=== PATIENT | female | born 1995 | race Caucasian/White ===

== ENCOUNTER 2018-01-08 17:48 | Emergency (ER) | payer MEDICAID ==
[2018-01-08 18:10] VITALS: TEMP 98.5
[2018-01-08] MEDS ORDERED: Albuterol 0.083% Inhal Sol (2.5 mg/3 mL) UD IH STA (20:08)
--- NOTE | 2018-01-08 20:19 | C.PDOC ---
History Of Present Illness 22 year old female presents to the ED complaining of cough, chest congestion and chills for the last 10 days. Cough is associated with occasionally clear or yellow phlegm. Reports she has tried OTC cough medications without relief. Denies any fever, sore throat, ear pain, shortness of breath, nausea, vomiting, or diarrhea. Denies any history of asthma, recent travels or sick contacts at home. Time Seen by Provider: 01/08/18 19:59 Chief Complaint (Nursing): Cough, Cold, Congestion History Per: Patient History/Exam Limitations: no limitations Onset/Duration Of Symptoms: Days (10) Current Symptoms Are (Timing): Still Present Associated Symptoms: Chills, Cough, Nasal Congestion. denies: Fever, Sore Throat, Nausea, Vomiting, Diarrhea Ear Symptoms: Bilateral: None Past Medical History Reviewed: Historical Data, Nursing Documentation, Vital Signs Vital Signs: Last Vital Signs Temp 98.5 F 01/08/18 18:07 Pulse 74 01/08/18 18:07 Resp 20 01/08/18 18:07 BP 128/83 01/08/18 18:07 Pulse Ox 100 01/08/18 18:07 - Medical History PMH: Gastritis, Gall Bladder Disease Denies: Chronic Kidney Disease Surgical History: Appendectomy - [facility] Procedures EXCISION OF STOMACH, ENDO, DIAGN (10/29/15) RESECTION OF LEFT FALLOPIAN TUBE, OPEN APPROACH (11/27/14) RESECTION OF LEFT OVARY, OPEN APPROACH (11/27/14) Family History: States: No Known Family Hx - Social History Hx Tobacco Use: No Hx Alcohol Use: No Hx Substance Use: No Review Of Systems Constitutional: Positive for: Chills. Negative for: Fever ENT: Negative for: Ear Pain, Throat Pain Cardiovascular: Positive for: Other (chest congestion ) Respiratory: Positive for: Cough, Sputum (clear and yellow ). Negative for: Shortness of Breath Gastrointestinal: Negative for: Nausea, Vomiting, Diarrhea Physical Exam - Physical Exam Appears: Non-toxic, No Acute Distress Skin: Warm, Dry, No Rash Head: Normacephalic Eye(s): bilateral: Normal Inspection Nose: Normal Oral Mucosa: Moist Neck: Supple Chest: Symmetrical Cardiovascular: Rhythm Regular Respiratory: No Rales, No Rhonchi, Wheezing (diffused wheezing b/l ) Gastrointestinal/Abdominal: Soft, No Tenderness, No Guarding, No Rebound Extremity: Bilateral: Atraumatic, Normal Color And Temperature, Normal ROM Neurological/Psych: Oriented x3, Normal Speech Gait: Steady ED Course And Treatment O2 Sat by Pulse Oximetry: 100 (RA) Pulse Ox Interpretation: Normal - Radiology CXR: Interpreted by Me CXR Interpretation: Yes: No Acute Disease Progress Note: Patient treated with albuterol nebulizer in ED. Reevaluation Time: 21:02 Reassessment Condition: Improved (Lungs clear. Patient states she feels much less tight.) Medical Decision Making Medical Decision Making: Plan - CXR - HCG - Albuterol treatment Disposition Counseled Patient/Family Regarding: Studies Performed, Diagnosis, Need For Followup, Rx Given - Disposition Referrals: Gucci lAex [Staff Provider] - Disposition: HOME/ ROUTINE Disposition Time: 21:07 Condition: IMPROVED Prescriptions: Albuterol Sulfate [Proair Hfa] 0.09 mg IH QID PRN #1 inh PRN Reason: Wheezing Azithromycin [Zithromax] 250 mg PO DAILY #6 tab Promethazine HCl/Codeine [Prometh-Codein 6.25-10 mg/5 ml] 5 ml PO QID PRN #120 syrup PRN Reason: Cough Instructions: Acute Bronchitis, Adult (DC) Forms: [facility] ([place]) - Clinical Impression Clinical Impression: Bronchitis - Scribe Statement The provider has reviewed the documentation as recorded by the Scribfarhana Chacko All medical record entries made by the Scribe were at my direction and perso ej dictated by me. I have reviewed the chart and agree that the record accurately reflects my personal performance of the history, physical exam, medical decision making, and the department course for this patient. I have also personally directed, reviewed, and agree with the discharge instructions and disposition.
[2018-01-08] MEDS ORDERED: Albuterol 0.083% Inhal Sol (2.5 mg/3 mL) UD ONE (20:22)
[2018-01-08 21:33] VITALS: BP 126/85; PULSE 84; RESP 16; O2SAT 98
--- NOTE | 2018-01-09 08:50 | RAD ---
Date of service: 01/08/2018 HISTORY: cough COMPARISON: No prior. TECHNIQUE: Chest PA and lateral FINDINGS: LUNGS: No active pulmonary disease. PLEURA: No significant pleural effusion identified. No pneumothorax apparent. CARDIOVASCULAR: No aortic atherosclerotic calcification present. Normal cardiac size. No pulmonary vascular congestion. OSSEOUS STRUCTURES: No significant abnormalities. VISUALIZED UPPER ABDOMEN: Normal. OTHER FINDINGS: None. IMPRESSION: No active disease.
== END 2018-01-08 21:32 | disposition home or self-care (01) ==
LOC: C.ER 17:48
DX: J40 Bronchitis, not specified as acute or chronic (principal)